=== PATIENT | female | born 1940 | race African-American/Black ===

== ENCOUNTER 2023-03-20 16:30 | Inpatient (IN) | payer OTHER ==
[2023-03-20 17:14] LABS: #Eosinphils 0.4 10x3/uL (0.0-0.5); #Monocytes 0.8 10x3/uL (0.0-1.1); %Basophils 0.4 % (0.0-2.0); %Eosinophils 4.4 % (0.0-6.0); %Lymphocytes 20.6 % (18.0-47.0); %Monocytes 8.8 % (0.0-10.0); %Neutrophils 65.3 % (40.0-75.0); Hemoglobin 6.7 g/dL (12.0-15.5); Mean Corpuscular HGB CONC 30.5 g/dL (32.0-36.0); Mean Corpuscular Hemoglobin 27.1 pg (27.0-33.0); Mean Corpuscular Volume 89.1 fl (81.6-98.3); Platelet Count 228 10x3/uL (150-450); RBC Distribution Width 15.5 % (11.5-14.5); Red Blood Cell (RBC) Count 2.47 10x6/uL (3.90-5.03); White Blood Cell (WBC) Count 9.2 10x3/uL (3.5-10.5)
[2023-03-20 17:21] LABS: ALT (SGPT) 12 U/L (8-55); AST (SGOT) 14 U/L (5-34); Albumin 3.7 g/dL (3.4-4.8); Alkaline Phosphatase 124 U/L (40-110); Anion Gap 15 mmol/L (10-20); BUN (Urea Nitrogen) 47 mg/dL (9.8-20.1); Bilirubin, Total 0.2 mg/dL (0.2-1.2); Calc. Creatinine Clearance 0 mL/min (70-130); Calcium 8.2 mg/dL (7.8-10.44); Carbon Dioxide 23 mmol/L (23-31); Chloride 106 mmol/L (98-107); Estimated GFR 22; Globulin 2.4 g/dL (2.4-3.5); Glucose 193 mg/dL (83-110); Potassium 4.2 mmol/L (3.5-5.1); Protein, Total 6.1 g/dL (5.8-8.1); Sodium 140 mmol/L (136-145)
[2023-03-20] MEDS ORDERED: Ipratropium/Albuterol 3 ML NEB ONE (18:49)
[2023-03-20 19:18] LABS: Troponin I 0.011 ng/mL (< 0.028)
[2023-03-20 19:28] LABS: PTT 29.1 sec (22.0-33.0); Prothrombin Time 10.8 sec (9.5-12.1)
[2023-03-20] MEDS ORDERED: methylPREDNISolone Sod Succ/PF 125 MG/2 ML VIAL ONE (20:11)
[2023-03-20] MEDS ORDERED: Ondansetron PF 4 MG/2 ML Vial IVP PRN (20:52)
[2023-03-20] MEDS ORDERED: Dextrose 5% in Water 1,000 ML IV PRN (20:52)
[2023-03-20] MEDS ORDERED: Dextrose 50% Abboject 50 ML SYRINGE SLOW IVP PRN (20:52)
[2023-03-20] MEDS ORDERED: Guaifenesin DM 100-10/5 ML UDCUP PO PRN (20:52)
[2023-03-20] MEDS ORDERED: Glucagon 1 MG/ML KIT IM PRN (20:52)
[2023-03-20] MEDS ORDERED: Acetaminophen 325 MG TAB PO PRN (20:52)
[2023-03-20] MEDS ORDERED: Senokot S 8.6-50 MG TAB PO PRN (20:52)
[2023-03-20] MEDS ORDERED: cefTRIAXone (ROCEPHIN) 1 GM VIAL ONE (20:54)
[2023-03-20] MEDS ORDERED: Ipratropium/Albuterol 3 ML NEB NEB PRN (20:58)
[2023-03-20] MEDS ORDERED: QUEtiapine 25 MG TAB PO SCH (21:30)
[2023-03-20] MEDS ORDERED: cloNIDine 0.1 MG TAB PO SCH (21:30)
[2023-03-20] MEDS ORDERED: Furosemide 100 MG/10 ML VIAL SLOW IVP SCH (21:30)
[2023-03-20] MEDS ORDERED: Furosemide 100 MG/10 ML VIAL ONE (21:41)
[2023-03-20] MEDS ORDERED: cloNIDine 0.1 MG TAB ONE (21:42)
[2023-03-20] MEDS ORDERED: QUEtiapine 25 MG TAB ONE (21:42)
[2023-03-20] MEDS: Nicotine 14 MG PATCH TD SCH (21:55)
[2023-03-20] MEDS ORDERED: EPOETIN ALFA-EPBX (ESRD) 3,000 UNITS/ML VIAL SC SCH (22:00)
[2023-03-20] MEDS ORDERED: EPOETIN ALFA-EPBX (ESRD) 2,000 UNITS/ML VIAL SC SCH (22:00)
[2023-03-20] MEDS ORDERED: Azithromycin 500 MG VIAL ONE (22:19)
[2023-03-20 22:24] LABS: Iron 27 ug/dL (50-170); Iron Binding Capacity, Total 298 mcg/dL (265-497)
[2023-03-21] MEDS ORDERED: Furosemide 40 MG/4 ML VIAL SLOW IVP SCH ×2 (06:00→09:00)
[2023-03-21 06:03] LABS: #Monocytes 0.1 10x3/uL (0.0-1.1); #Neutrophils 7.6 10x3/uL (1.5-8.4); %Lymphocytes 8.1 % (18.0-47.0); %Monocytes 0.7 % (0.0-10.0); %Neutrophils 90.5 % (40.0-75.0); Hematocrit 31.5 % (34.9-44.5); Hemoglobin 10.3 g/dL (12.0-15.5); Mean Corpuscular HGB CONC 32.7 g/dL (32.0-36.0); Mean Corpuscular Hemoglobin 28.5 pg (27.0-33.0); Mean Corpuscular Volume 87.3 fl (81.6-98.3); Mean Platelet Volume 11.2 fl (7.4-10.4); Platelet Count 222 10x3/uL (150-450); RBC Distribution Width 14.7 % (11.5-14.5); Red Blood Cell (RBC) Count 3.61 10x6/uL (3.90-5.03); White Blood Cell (WBC) Count 8.4 10x3/uL (3.5-10.5)
[2023-03-21 06:16] LABS: Anion Gap 18 mmol/L (10-20); BUN (Urea Nitrogen) 43 mg/dL (9.8-20.1); Calc. Creatinine Clearance 0 mL/min (70-130); Calcium 8.9 mg/dL (7.8-10.44); Carbon Dioxide 24 mmol/L (23-31); Chloride 103 mmol/L (98-107); Estimated GFR 23; Potassium 4.6 mmol/L (3.5-5.1); Sodium 140 mmol/L (136-145)
[2023-03-21 06:21] LABS: Glucose 427 mg/dL (83-110)
[2023-03-21] MEDS: Mometasone/Formoterol 200/5 60 PUFF INH SCH ×2 (06:23→22:40)
[2023-03-21] MEDS ORDERED: Insulin Regular 300 UNITS/3 ML VIAL ONE (06:30)
[2023-03-21] MEDS ORDERED: Dextrose 5% in Water 1,000 ML IV PRN (06:33)
[2023-03-21] MEDS ORDERED: Dextrose 50% Abboject 50 ML SYRINGE SLOW IVP PRN (06:33)
[2023-03-21] MEDS ORDERED: Glucagon 1 MG/ML KIT IM PRN (06:33)
[2023-03-21 08:16] LABS: #Monocytes 0.1 10x3/uL (0.0-1.1); #Neutrophils 7.1 10x3/uL (1.5-8.4); %Basophils 0.1 % (0.0-2.0); %Lymphocytes 9.2 % (18.0-47.0); %Monocytes 0.9 % (0.0-10.0); %Neutrophils 89.1 % (40.0-75.0); Hematocrit 32.8 % (34.9-44.5); Hemoglobin 10.6 g/dL (12.0-15.5); Mean Corpuscular HGB CONC 32.3 g/dL (32.0-36.0); Mean Corpuscular Hemoglobin 28.3 pg (27.0-33.0); Mean Corpuscular Volume 87.5 fl (81.6-98.3); Mean Platelet Volume 11.3 fl (7.4-10.4); Platelet Count 228 10x3/uL (150-450); Red Blood Cell (RBC) Count 3.75 10x6/uL (3.90-5.03)
[2023-03-21] MEDS ORDERED: Aspirin Chewable 81 MG TAB PO SCH (09:00)
[2023-03-21] MEDS ORDERED: Losartan 25 MG TAB PO SCH (09:00)
[2023-03-21] MEDS ORDERED: UBIDECARENONE 10 MG PO SCH (09:00)
[2023-03-21] MEDS ORDERED: Furosemide 40 MG/4 ML VIAL ONE (09:39)
[2023-03-21] MEDS ORDERED: Aspirin Chewable 81 MG TAB ONE (09:39)
[2023-03-21] MEDS: Folic Acid/Vit B Comp W-C PO SCH (09:47)
[2023-03-21] MEDS: Ferrous Sulfate 325 MG TAB PO SCH (09:47)
[2023-03-21] MEDS: Atorvastatin Calcium 20 MG TAB PO SCH (09:47)
[2023-03-21] MEDS: dilTIAZem CD 180 MG CAP PO SCH (09:47)
[2023-03-21] MEDS: HumaLOG 300 UNITS/3 ML VIAL SC PRN ×3 (12:22→21:27)
[2023-03-21 16:53] VITALS: BMI 31.1
[2023-03-21] MEDS: Docusate 100 MG CAP PO SCH (21:22)
[2023-03-21] MEDS: cloNIDine 0.1 MG TAB PO SCH (21:22)
[2023-03-21] MEDS: QUEtiapine 25 MG TAB PO SCH (21:22)
[2023-03-21] MEDS: Nicotine 14 MG PATCH TD SCH (21:23)
[2023-03-22 04:35] LABS: Anion Gap 17 mmol/L (10-20); BUN (Urea Nitrogen) 56 mg/dL (9.8-20.1); Calc. Creatinine Clearance 28 mL/min (70-130); Calcium 8.8 mg/dL (7.8-10.44); Carbon Dioxide 24 mmol/L (23-31); Chloride 103 mmol/L (98-107); Estimated GFR 21; Potassium 4.7 mmol/L (3.5-5.1); Sodium 139 mmol/L (136-145)
[2023-03-22 04:37] LABS: Glucose 416 mg/dL (83-110)
[2023-03-22 04:46] LABS: Troponin I 0.012 ng/mL (< 0.028)
[2023-03-22] MEDS: HumaLOG 300 UNITS/3 ML VIAL SC PRN ×4 (05:00→23:36)
[2023-03-22] MEDS ORDERED: HumaLOG 300 UNITS/3 ML VIAL SC SCH (07:00)
[2023-03-22] MEDS: Mometasone/Formoterol 200/5 60 PUFF INH SCH ×2 (08:14→18:30)
[2023-03-22] MEDS: Atorvastatin Calcium 20 MG TAB PO SCH (08:45)
[2023-03-22] MEDS: dilTIAZem CD 180 MG CAP PO SCH (08:45)
[2023-03-22] MEDS: Docusate 100 MG CAP PO SCH ×2 (08:46→21:04)
[2023-03-22] MEDS: Lantus 1000 UNITS/10 ML VIAL SC SCH (08:46)
[2023-03-22] MEDS: Ferrous Sulfate 325 MG TAB PO SCH (08:46)
[2023-03-22] MEDS: Folic Acid/Vit B Comp W-C PO SCH (09:42)
[2023-03-22] MEDS: cloNIDine 0.1 MG TAB PO SCH (21:03)
[2023-03-22] MEDS: QUEtiapine 25 MG TAB PO SCH (21:04)
[2023-03-22] MEDS: Nicotine 14 MG PATCH TD SCH (21:04)
[2023-03-23 04:16] LABS: #Monocytes 1.2 10x3/uL (0.0-1.1); #Neutrophils 8.7 10x3/uL (1.5-8.4); %Basophils 0.2 % (0.0-2.0); %Eosinophils 0.3 % (0.0-6.0); %Lymphocytes 24.7 % (18.0-47.0); %Monocytes 9.1 % (0.0-10.0); %Neutrophils 65.3 % (40.0-75.0); Hematocrit 29.2 % (34.9-44.5); Hemoglobin 9.4 g/dL (12.0-15.5); Mean Corpuscular HGB CONC 32.2 g/dL (32.0-36.0); Mean Corpuscular Hemoglobin 28.4 pg (27.0-33.0); Mean Corpuscular Volume 88.2 fl (81.6-98.3); Mean Platelet Volume 11.4 fl (7.4-10.4); Platelet Count 210 10x3/uL (150-450); RBC Distribution Width 15.4 % (11.5-14.5); Red Blood Cell (RBC) Count 3.31 10x6/uL (3.90-5.03); White Blood Cell (WBC) Count 13.3 10x3/uL (3.5-10.5)
[2023-03-23 04:18] LABS: Anion Gap 14 mmol/L (10-20); BUN (Urea Nitrogen) 56 mg/dL (9.8-20.1); Calc. Creatinine Clearance 33 mL/min (70-130); Calcium 8.9 mg/dL (7.8-10.44); Carbon Dioxide 25 mmol/L (23-31); Chloride 106 mmol/L (98-107); Estimated GFR 25; Glucose 118 mg/dL (83-110); Potassium 3.9 mmol/L (3.5-5.1); Sodium 141 mmol/L (136-145)
[2023-03-23] MEDS: Mometasone/Formoterol 200/5 60 PUFF INH SCH ×2 (07:44→20:02)
[2023-03-23] MEDS: Folic Acid/Vit B Comp W-C PO SCH (10:06)
[2023-03-23] MEDS: dilTIAZem CD 180 MG CAP PO SCH ×2 (10:06→14:11)
[2023-03-23] MEDS: Docusate 100 MG CAP PO SCH ×2 (10:07→21:06)
[2023-03-23] MEDS: Atorvastatin Calcium 20 MG TAB PO SCH (10:07)
[2023-03-23] MEDS: Ferrous Sulfate 325 MG TAB PO SCH (10:07)
[2023-03-23] MEDS: Lantus 1000 UNITS/10 ML VIAL SC SCH (10:07)
[2023-03-23] MEDS: ALPRAZolam 0.25 MG TAB PO PRN ×2 (17:18→21:34)
[2023-03-23] MEDS: HumaLOG 300 UNITS/3 ML VIAL SC PRN (18:04)
[2023-03-23] MEDS: hydrALAZINE 20 MG/ML VIAL SLOW IVP PRN (20:59)
[2023-03-23] MEDS: QUEtiapine 25 MG TAB PO SCH (21:06)
[2023-03-23] MEDS: cloNIDine 0.1 MG TAB PO SCH (21:08)
[2023-03-23] MEDS: Nicotine 14 MG PATCH TD SCH (21:09)
[2023-03-23] MEDS ORDERED: Sodium Chloride 0.65% Nasal 44 ML BOT EA NARE PRN (23:01)
[2023-03-24] MEDS: hydrALAZINE 20 MG/ML VIAL SLOW IVP PRN ×2 (01:04→05:58)
[2023-03-24] MEDS: HumaLOG 300 UNITS/3 ML VIAL SC PRN (01:05)
[2023-03-24 04:28] LABS: Anion Gap 16 mmol/L (10-20); BUN (Urea Nitrogen) 41 mg/dL (9.8-20.1); Calc. Creatinine Clearance 41 mL/min (70-130); Calcium 9.2 mg/dL (7.8-10.44); Carbon Dioxide 22 mmol/L (23-31); Chloride 108 mmol/L (98-107); Estimated GFR 33; Glucose 162 mg/dL (83-110); Potassium 3.6 mmol/L (3.5-5.1); Sodium 142 mmol/L (136-145)
[2023-03-24 04:31] LABS: #Eosinphils 0.1 10x3/uL (0.0-0.5); #Monocytes 0.9 10x3/uL (0.0-1.1); #Neutrophils 7.6 10x3/uL (1.5-8.4); %Basophils 0.2 % (0.0-2.0); %Eosinophils 1.2 % (0.0-6.0); %Monocytes 7.8 % (0.0-10.0); %Neutrophils 67.5 % (40.0-75.0); Hematocrit 31.4 % (34.9-44.5); Mean Corpuscular HGB CONC 31.8 g/dL (32.0-36.0); Mean Corpuscular Hemoglobin 28.2 pg (27.0-33.0); Mean Corpuscular Volume 88.5 fl (81.6-98.3); Mean Platelet Volume 11.3 fl (7.4-10.4); Platelet Count 218 10x3/uL (150-450); RBC Distribution Width 15.3 % (11.5-14.5); Red Blood Cell (RBC) Count 3.55 10x6/uL (3.90-5.03); White Blood Cell (WBC) Count 11.3 10x3/uL (3.5-10.5)
[2023-03-24] MEDS: Mometasone/Formoterol 200/5 60 PUFF INH SCH (06:57)
[2023-03-24] MEDS: Nicotine 14 MG PATCH TD SCH (07:36)
[2023-03-24] MEDS: Ferrous Sulfate 325 MG TAB PO SCH (09:25)
[2023-03-24] MEDS: dilTIAZem CD 180 MG CAP PO SCH (09:25)
[2023-03-24] MEDS: Lantus 1000 UNITS/10 ML VIAL SC SCH (09:26)
[2023-03-24] MEDS: Atorvastatin Calcium 20 MG TAB PO SCH (09:26)
[2023-03-24] MEDS: Docusate 100 MG CAP PO SCH (09:49)
[2023-03-24] MEDS: Folic Acid/Vit B Comp W-C PO SCH (10:37)
[2023-03-24 12:47] VITALS: BP 167/75; TEMP 97.9
== END 2023-03-24 12:30 | disposition home or self-care (01) | DRG 812 ==
LOC: CSHERS 16:30 → CSHERHOLD 20:52 → CSHTELE 03-21 14:49
PROVIDERS: ADMIT Student in an Organized Health Care Education/Training Program; ATTEND Internal Medicine
PROC: 30233N1 Transfusion of Nonautologous Red Blood Cells into Peripheral Vein, Percutaneous Approach (ICD-10-PCS; principal; 2023-03-20)
DX: D50.9 Iron deficiency anemia, unspecified (principal); N18.4 Chronic kidney disease, stage 4 (severe); N17.9 Acute kidney failure, unspecified; E87.70 Fluid overload, unspecified; I12.9 Hypertensive chronic kidney disease with stage 1 through stage 4 chronic kidney disease, or unspecified chronic kidney disease; I25.10 Atherosclerotic heart disease of native coronary artery without angina pectoris; E11.22 Type 2 diabetes mellitus with diabetic chronic kidney disease; J44.9 Chronic obstructive pulmonary disease, unspecified; Z88.8 Allergy status to other drugs, medicaments and biological substances; Z79.82 Long term (current) use of aspirin; Z79.899 Other long term (current) drug therapy; Z79.4 Long term (current) use of insulin; F41.9 Anxiety disorder, unspecified; Z90.710 Acquired absence of both cervix and uterus; Z96.641 Presence of right artificial hip joint; Z83.3 Family history of diabetes mellitus; Z88.0 Allergy status to penicillin; Z82.49 Family history of ischemic heart disease and other diseases of the circulatory system; I25.118 Atherosclerotic heart disease of native coronary artery with other forms of angina pectoris; E11.51 Type 2 diabetes mellitus with diabetic peripheral angiopathy without gangrene; I70.213 Atherosclerosis of native arteries of extremities with intermittent claudication, bilateral legs; E78.2 Mixed hyperlipidemia
CPT/HCPCS: 36415; 36416; 36430; 71045; 80048; 80053; 82274; 82728; 83540; 83550; 83605; 83880; 84443; 84484; 85025; 85610; 85730; 86850; 86900; 86901; 87040; 93005; 93010; 93306; 94640; 94760; J0360; J0456; J0696; J1815; J1940; J2930; J7611; J7620; P9016; Q5105